=== PATIENT | female | born 1990 | race Caucasian/White ===

== ENCOUNTER 2017-06-13 19:19 | Emergency (ER) | payer BC ==
[2017-06-13 19:25] VITALS: TEMP 98.1
[2017-06-13] MEDS ORDERED: Sodium Chloride 0.9% 1,000 ML IV STA (19:54)
--- NOTE | 2017-06-13 20:05 | ED PDOC ---
Syncope/Near Syncope/Dizziness Time Seen by Provider: 06/13/17 19:35 Chief Complaint (Nursing): Syncope Chief Complaint (Provider): Weakness History Per: Patient History/Exam Limitations: no limitations Onset/Duration Of Symptoms: Days (2 days) Current Symptoms Are (Timing): Still Present Associated Symptoms Preceding Syncopal Episode: Lightheadedness Additional Complaint(s): 27 y/o female with no past medical problems, brought in by boyfriend, presents to the ED complaining of general weakness and lightheadedness, onset of 2 days. According to the patient, she has been experiencing some nausea, non-bloody vomiting and diarrhea, along with general weakness all over her body. She reported that she was feeling better today and went to work, but shortly began to feel lightheaded and left work early. Patient later attended a restaurant with her boyfriend and experienced similar symptoms once more and triggered a syncopal episode. As per boyfriend, he caught the patient and she did not hit her head. She denies any headache, vision changes, neck pain, numbness or tingling. Of note, her sister has been exhibiting similar symptoms. Past Medical History Reviewed: Historical Data, Nursing Documentation, Vital Signs Vital Signs: Last Vital Signs Temp 98.1 F 06/13/17 19:21 Pulse 73 06/13/17 19:21 Resp 16 06/13/17 19:21 BP 120/70 06/13/17 19:21 Pulse Ox 99 06/13/17 19:21 - Medical History PMH: Depression - Surgical History Surgical History: No Surg Hx - Family History Family History: States: Unknown Family Hx - Living Arrangements Living Arrangements: With Family - Social History Current smoker - smoking cessation education provided: No Ex-Smoker (has not smoked in the last 12 months): No Alcohol: Social - Home Medications Home Medications: Ambulatory Orders Medication Instructions Recorded Ondansetron [Zofran] 4 mg PO Q8H PRN #6 tab 06/13/17 - Allergies Allergies/Adverse Reactions: Allergies Allergy/AdvReac Type Severity Reaction Status Date / Time No Known Allergies Allergy Verified 06/13/17 19:24 Review of Systems ROS Statement: Except As Marked, All Systems Reviewed And Found Negative Constitutional: Positive for: Weakness. Negative for: Fever Eyes: Negative for: Vision Change Gastrointestinal: Positive for: Nausea, Vomiting, Diarrhea. Negative for: Abdominal Pain Musculoskeletal: Negative for: Neck Pain Neurological: Positive for: Dizziness, Other (Lightheadedness ). Negative for: Numbness, Headache Physical Exam - Reviewed Nursing Documentation Reviewed: Yes Vital Signs Reviewed: Yes - Physical Exam Appears: Positive for: Well, No Acute Distress Head Exam: Positive for: ATRAUMATIC Skin: Positive for: Normal Color, Warm Eye Exam: Positive for: Normal appearance, EOMI, PERRL ENT: Positive for: Normal ENT Inspection. Negative for: Nasal Congestion, Pharyngeal Erythema Neck: Positive for: Normal, Painless ROM, Supple Cardiovascular/Chest: Positive for: Regular Rate, Rhythm. Negative for: Murmur Respiratory: Positive for: Normal Breath Sounds. Negative for: Respiratory Distress Gastrointestinal/Abdominal: Positive for: Normal Exam, Soft. Negative for: Tenderness Back: Positive for: Normal Inspection. Negative for: L CVA Tenderness, R CVA Tenderness Extremity: Positive for: Normal ROM. Negative for: Tenderness, Pedal Edema, Deformity Neurologic/Psych: Positive for: Alert, fine unhairer II-XII, Oriented. Negative for: Motor/Sensory Deficits, Aphasia, Facial Droop - Laboratory Results Result Diagrams: 06/13/17 20:00 06/13/17 20:00 Interpretation Of Abn Labs: no acute - ECG ECG: Positive for: Interpreted By Me, Viewed By Me ECG Rhythm: Positive for: Normal QRS, Normal ST Segment, Sinus Rhythm O2 Sat by Pulse Oximetry: 99 (RA) Pulse Ox Interpretation: Normal - CT Scan/US ct Other Rad Studies (CT/US): Read By Radiologist Other Rad Interpretation: no acute - Progress ED Course And Treament: 2158: Stable. AAOx3. Pain free. Tolerated PO. Fu with pcp. Ambulated with no issues. Medical Decision Making Medical Decision Making: Time: --19:54 Impression: --27 y/o female with weakness Plan: --Head CT W/O Contrast --ECG --ED Urine --Benyl 10 mg PO --IV Fluids --Zofran 4mg IV --Orthostatic BP Reassess --20:59 FINDINGS: CT Head Without Intravenous Contrast Brain: No hemorrhage. No significant white matter disease.Bilateral basal ganglia calcific foci are noted. Ventricles: Unremarkable. No ventriculomegaly. Bones/joints: Unremarkable. No acute fracture. Soft tissues: Unremarkable. Sinuses: Unremarkable as visualized. No acute sinusitis. Mastoid air cells: Unremarkable as visualized. No mastoid effusion. IMPRESSION: No acute findings Scribe Attestation: Documented by Delfin Tanner acting as a scribe for Cedric Miller MD. Disposition - Clinical Impression Clinical Impression: Syncope, Vomiting, Diarrhea - Patient ED Disposition Is Patient to be Admitted: No Counseled Patient/Family Regarding: Studies Performed, Diagnosis, Need For Followup - Disposition Referrals: [facility] [Outside] - 06/14/17 Disposition: Routine/Home Disposition Time: 22:01 Condition: STABLE Additional Instructions: Return if not better in 3 days. Prescriptions: Ondansetron [Zofran] 4 mg PO Q8H PRN #6 tab PRN Reason: Nausea/Vomiting Instructions: Syncope (ED), Acute Nausea and Vomiting (ED), Acute Diarrhea (ED) Forms: [facility] ([place]), [facility] ED School/Work Excuse
[2017-06-13 20:30] LABS: BASO % 0.2 % (0.0-2.0); EOS # 0.1 K/uL (0.0-0.7); EOS % 0.8 % (0.0-4.0); HEMOGLOBIN 13.2 g/dL (12.0-16.0); LYMPH # 1.7 K/uL (1.0-4.3); LYMPH % 19.1 % (20.0-40.0); MEAN CELL VOLUME 90.3 fl (81.0-99.0); MEAN CORPUSCULAR HEMOGLOBIN 30.1 pg (27.0-31.0); MEAN CORPUSCULAR HGB CONC 33.3 g/dL (33.0-37.0); MONO # 0.7 K/uL (0.0-0.8); MONO % 7.5 % (0.0-10.0); NEUT # 6.5 K/uL (1.8-7.0); NEUT % 72.4 % (50.0-75.0); RBC 4.37 Mil/uL (3.80-5.20); RED CELL DISTRIBUTION WIDTH 13.5 % (11.5-14.5)
[2017-06-13 20:42] LABS: ALB/GLOB RATIO 1.2 (1.0-2.1); ALBUMIN 3.9 g/dL (3.5-5.0); ALT/SGPT 24 U/L (9-52); AST/SGOT 19 U/L (14-36); BLOOD UREA NITROGEN 12 mg/dl (7-17); CALCIUM 8.5 mg/dL (8.4-10.2); GFR AFRICAN-AMERICAN > 60; GFR NON-AFRICAN AMERICAN > 60
[2017-06-13 22:40] VITALS: BP 111/65; PULSE 76; RESP 16; O2SAT 100
--- NOTE | 2017-06-14 07:46 | CT ---
PROCEDURE: CT HEAD WITHOUT CONTRAST. HISTORY: headache COMPARISON: None available. TECHNIQUE: Axial computed tomography images were obtained through the head/brain without intravenous contrast. Radiation dose: Total exam DLP = 793.07 mGy-cm. This CT exam was performed using one or more of the following dose reduction techniques: Automated exposure control, adjustment of the mA and/or kV according to patient size, and/or use of iterative reconstruction technique. FINDINGS: HEMORRHAGE: No intracranial hemorrhage. BRAIN: Normal parsons-white matter differentiation and density are appreciated throughout the cerebrum and cerebellum with the brainstem appearing unremarkable as well. There is no mass effect. There is no suspicious extra-axial fluid collection and the midline brain anatomy appears diffusely unremarkable. VENTRICLES: Unremarkable. No hydrocephalus. CALVARIUM: Unremarkable. PARANASAL SINUSES: Unremarkable as visualized. No significant inflammatory changes. MASTOID AIR CELLS: Unremarkable as visualized. No inflammatory changes. OTHER FINDINGS: None. IMPRESSION: Unremarkable unenhanced CT of the Head. Concordant preliminary report from [facility], 06/13/2017.
--- NOTE | 2017-06-14 09:41 | CARD ---
APPROVED REPORT EKG Measurement Heart [id number] CT 148P9 [id number] <Conclusion> Normal sinus rhythm Normal ECG
== END 2017-06-13 22:08 | disposition home or self-care (01) ==
LOC: H.ER 19:19
DX: R55 Syncope and collapse (principal); R11.10 Vomiting, unspecified; R19.7 Diarrhea, unspecified; F32.9 Major depressive disorder, single episode, unspecified; Z87.891 Personal history of nicotine dependence
CPT/HCPCS: 70450; 80053; 81025; 82948; 84484; 85025; 93005; 96360; 99285; J2405; J7040